=== PATIENT | male | born 1940 | race Caucasian/White ===

== ENCOUNTER 2022-04-06 08:39 | Outpatient (CLI) | payer MEDICARE, BC, SELFPAY ==
--- NOTE | 2022-04-06 10:35 | W.ANESCHARGE ---
Anesthesia Charges Start Date/Time Anesthesia Start Date: 04/06/22 Anesthesia Start Time: 09:51 Stop Date/Time Anesthesia Stop Date: 04/06/22 Anesthesia Stop Time: 10:32 Summary Emergency: No
== END 2022-04-06 08:40 | disposition home or self-care (01) ==
LOC: OP CLINIC 08:42
PROVIDERS: Visit Provider Internal Medicine Gastroenterology
DX: R93.3 Abnormal findings on diagnostic imaging of other parts of digestive tract (principal); K52.9 Noninfective gastroenteritis and colitis, unspecified; K57.30 Diverticulosis of large intestine without perforation or abscess without bleeding; K63.5 Polyp of colon
CPT/HCPCS: 00811; 45385; 88305; J2704

== ENCOUNTER 2022-12-29 14:41 | Outpatient (CLI) | payer MEDICARE, BC, SELFPAY ==
[2022-12-29 15:09] VITALS: BP 150/66; RESP 16; TEMP 36.6; O2SAT 98
[2022-12-29 15:47] VITALS: BP 149/77; PULSE 72; RESP 16; O2SAT 99
== END 2022-12-29 16:02 | disposition home or self-care (01) ==
LOC: OP CLINIC 14:44
PROVIDERS: PCP Family Medicine; Visit Provider Family Medicine
DX: M25.671 Stiffness of right ankle, not elsewhere classified (principal); M76.61 Achilles tendinitis, right leg
CPT/HCPCS: 27605; 76942; J0665